=== PATIENT | female | born 1965 | race Caucasian/White ===

== ENCOUNTER 2016-05-31 05:28 | Day surgery (SDC) | payer OTHER ==
[~2016-05-31] VITALS: Ht 162.6 cm; Wt 90.7 kg
[~2016-05-31 05:28] MED LIST: ASPIR-LOW81 MG PO; BIOTIN 5000MCG PO; CALTRATE 600 +1 EAC2 PO; CHEWABLE-VITE1 EACH PO; DIOVAN HCT 31 TABLE1 PO; HYDROCODON-ACE1 EAC7 PO; LASIX20 MG PO; LOESTRIN 241 TABLET PO; MAGNESIUM400 M1 PO; MEGARED OMEGA-1 EAC1 PO; MICROGESTIN1 EAC1 PO; PRILOSEC40 MG PO; TYLENOL WITH C1 EACH PO; VALTREX1000 MG PO; ZINC30 MG PO; ZOFRAN ODT4 MG PO
[2016-05-31 06:28] VITALS: BP 109/63
[2016-05-31 10:52] VITALS: BP 122/70
[2016-05-31 11:47] VITALS: BP 109/69
[2016-05-31 12:15] VITALS: BP 104/68
== END 2016-05-31 12:20 | disposition home or self-care (01) ==
LOC: SDC 05:28
PROC: 0WQF0ZZ Repair Abdominal Wall, Open Approach (ICD-10-PCS; principal; 2016-05-31)
DX: K43.9 Ventral hernia without obstruction or gangrene (principal); Z98.84 Bariatric surgery status
CPT/HCPCS: J0330; J0690; J1100; J1170; J1644; J2250; J2405; J2710; J2765; J3010; S0020